=== PATIENT | female | born 1940 | race Caucasian/White ===

== ENCOUNTER 2016-12-25 06:55 | Inpatient (IN) | payer OTHER ==
--- NOTE | ~2016-12-25 | DS ---
Discharge Summary [facility] [address] [place]. [address] NAME: MARINO ELISE : 44 STATUS : DIS IN PAT#: [id number] AGE: 76 ADM/REG DATE : 12/25/16 MR#: [id number] REPORT SERV DATE: 01/01/17 DICTATED BY: WILIAN PORTER DATE: 12/31/16 REPORT STATUS : Draft TRANSCRIBED BY: MODL DATE: 12/31/16 ADMISSION DATE: 12/25/2016 DISCHARGE DATE: 12/31/2016 DISCHARGE DIAGNOSES: 1. Hypoxic respiratory failure. 2. Acute diastolic heart failure and acute pulmonary edema in the setting of mitral stenosis and history of rheumatic fever. 3. Acute chronic obstructive pulmonary disease exacerbation. 4. GI bleed. 5. Anemia of iron deficiency and acute blood loss, most recent H and H 9.0 and 29.4. 6. Hypothyroidism, most recent TSH 3.860. 7. History of coronary artery bypass grafting and coronary artery disease. 8. History of cerebrovascular accident. 9. History of rheumatic fever. DISCHARGE MEDICATIONS: Are as follows: Lipitor 10 mg daily; Lexapro 10 mg daily; doxycycline 100 mg twice a day, prescription written; levothyroxine 75 mcg daily; nicotine patch 14 mg topically daily; torsemide 5 mg daily, prescription written for 30 days only, have instructed her to get a BMP checked at her primary care office in 7-10 days and to further discuss this medicine; lisinopril 10 mg twice a day; Ventolin inhaler puffs every 4 hours p.r.n. and Symbicort 160/4.5 two puffs twice a day. Also, the patient will be discharging home on oxygen 2 L nasal cannula continuous. HISTORY OF PRESENT ILLNESS: A 76-year-old white female, who presented with difficulty breathing and hypoxia, please see the initial H and P of Dr. Spencer Gibson as the patient was admitted to the hospitalist service for further evaluation and treatment. Lab work was ordered and followed. She was initially found to have a gastrointestinal bleed, was started on PPI therapy. Nebulizers were initiated as well. PROCEDURES AND IMAGING DURING THIS ADMISSION: Included: An echocardiogram showing ejection fraction of 60% with mild to moderate diastolic dysfunction, and moderate mitral stenosis. CONSULTANTS DURING THIS ADMISSION: Included: Gastrointestinal, Dr. Spencer Hong. CONTINUATION OF HOSPITAL COURSE: The patient was initially seen by Dr. Spencer Gibson where she was still dyspneic and wheezing, but had made some mild improvement with oxygen and nebulizer therapy. She was seen by GI, who did not feel at this time to pursue endoscopy procedure, but to follow her lab work and perhaps see her as an outpatient. She had some initial hypotension, but this has since resolved and her blood pressures have been stable. I began seeing the patient on 12/28/2016, where I attempted to wean her oxygen down, however was unsuccessful in this. I obtained a procalcitonin level in an effort to begin deescalating her antibiotics. This came back at 0.06, so her IV antibiotics of Zithromax and Rocephin were discontinued, and she was started on doxycycline. The patient continued to improve slowly each day. She did have some slight elevation of white blood cells, related to the steroids, but has remained afebrile. She did have an acute episode of Discharge Summary [address] [place]. [address] NAME: MARINO ELISE : 42 STATUS : DIS IN PAT#: [id number] AGE: 76 ADM/REG DATE : 12/25/16 MR#: [id number] REPORT SERV DATE: 01/01/17 DICTATED BY: WILIAN PORTER DATE: 12/31/16 REPORT STATUS : Draft TRANSCRIBED BY: ANIKET DATE: 12/31/16 pulmonary edema, which resolved with the use of IV diuretics and she has been weaned down to p.o. diuretics and is tolerating a very low-dose Demadex at this time. She was unable to be weaned from her oxygen and her room air sat at rest persisted at 88%, 89% with exercise at room air 81%, so she will be discharging home on oxygen therapy. I have also initiated inhaler therapy with Symbicort at discharge and instructed to follow up with her primary care in 7-10 days. She also needs to recheck TSH in 6 weeks and the patient is to call the office of Dr. Spencer Hong for followup as an outpatient for possible EGD. She was in agreement with all these plans going forward. Questions were answered at bedside with both, the patient and her . Please note, greater than 30 minutes were spent on this discharge for medication teaching, followup planning, and further disposition. [facility] [place]/MODL Wilian Porter NP / [id number] CC: Aury Brandt M.D.
--- NOTE | ~2016-12-25 | HP ---
History And Physical [place] [id number] [place]. [address] NAME: MARINO ELISE : 42 STATUS : ADM IN [facility]#: [id number] AGE: 76 ADM/REG DATE : 12/25/16 MR#: [id number] REPORT SERV DATE: 12/25/16 DICTATED BY: ROSA MARIA GIBSON DATE: 12/25/16 REPORT STATUS : Draft TRANSCRIBED BY: MODL DATE: 12/25/16 DATE OF ADMISSION: 12/25/2016 CHIEF COMPLAINT: This is a 76-year-old white female, who was triaged in the emergency room on 12/25/2016 at 0655 hours complaining of difficulty breathing. In the emergency room, she was found to have a room air sat of 80% which increased to 90% on 2 L. after evaluation in the emergency room, she was thought to have an acute exacerbation of COPD in addition to anemia with Hemoccult-positive stools. She was referred to the Hospitalist Service for admission and is now seen by the undersigned and admitted. The history is obtained from the patient, granddaughter, and review of medical records on [facility]. HISTORY OF PRESENT ILLNESS: She has been ill for the last at least two to three days. On 12/23, she presented to the emergency room at 0556 hours complaining of an upset stomach, lightheaded, and coughing. Admission vital signs; blood pressure 125/45, temperature 98.3, pulse 94, respirations 22, and O2 saturation 94% on 2L. On exam, she had faint wheezing. Her evaluation included a chest x-ray that showed cardiomegaly, prior CABG, and aortic valve procedure with no failure noted. Laboratory studies included a white count of 9.3, hemoglobin of 9.9, and platelets 380,000. PTT 31.6 and PT 14.9. Sodium 137, potassium 3.8, chloride 103, CO2 of 24, BUN 11, creatinine 0.6, glucose 167, calcium 7.9, and magnesium 1.7. BNP 254.2. Troponin less than 0.02. Arterial blood gases on room air, pH 7.43, pCO2 of 33, and PO2 of 60. Her diagnosis was dyspnea and COPD exacerbation. She was discharged from the emergency room with Zithromax, prednisone dose pack, albuterol HFA, and instructions to discontinue tobacco use. Her symptoms transiently improved. However, they became worse today and she came back to the emergency room. She does have a cough with yellow tanned sputum. She continued to be short of breath and has audible wheezing. She has not had fever or chills. She has not had chest pain. She has not had any earache or sore throat, but has noted some nasal drainage. She has had some nausea and diarrhea associated with black stool. She has had some upper abdominal soreness. She has had no dysphagia, odynophagia, or heartburn. She has not had any hematuria but has noted some burning with urination. MEDICAL HISTORY: Her medical history is significant for, 1. Iron deficiency, receiving outpatient iron infusions through [facility] 2. History of symptomatic Schatzki's ring and hiatal hernia requiring dilatation. She has had food bolus impaction at least three times requiring endoscopic treatment in 06/2016, 09/2015, and 08/2014. 3. She has had previous gastrointestinal bleeding. 4. A colonoscopy in 12/2015 demonstrated diverticulosis, angioectasia, polyps, and hemorrhoids. 5. An EGD in 08/2014 showed esophagitis, gastritis, and duodenitis. 6. Tissue aortic valve replacement. 7. CAD, post CABG. 8. History of strokes x2, left occipital and right basal ganglia. History And Physical [address] [place]. [address] NAME: MARINO ELISE : 42 STATUS : ADM IN [facility]#: [id number] AGE: 76 ADM/REG DATE : 12/25/16 MR#: [id number] REPORT SERV DATE: 12/25/16 DICTATED BY: ROSA MARIA GIBSON DATE: 12/25/16 REPORT STATUS : Draft TRANSCRIBED BY: MODQuinn DATE: 12/25/16 9. Hypertension. 10.B12 deficiency, not on regular treatment. 11.Hypothyroid, not on regular treatment. 12.Renal stones. 13.Carotid disease, post left carotid endarterectomy. 14.She has no history of cancer or VTE or diabetes. PAST SURGICAL HISTORY: Tissue aortic valve, CABG, hysterectomy, cholecystectomy, and left carotid endarterectomy. ALLERGIES OR INTOLERANCE: Zofran and sulfa. HOME MEDICATIONS: Albuterol, Zithromax, and steroid dose pack as noted from ED visit. Additional home medications, Lipitor 10 mg daily, Lexapro 10 mg daily, levothyroxine 75 mcg daily, and Prinivil 10 mg twice daily. FAMILY HISTORY: Largely unknown. She does not think there are family members with problems similar to hers. SOCIAL HISTORY: She is . She has a 50-year-old daughter. Continues to smoke. No alcohol use. Lives in [place], [place]. REVIEW OF SYSTEMS: Complete, done with the patient and granddaughter in room 6104, negative except as noted above. PHYSICAL EXAMINATION: VITAL SIGNS: Admission ED vital signs are as noted above. Vital signs on floor arrival: O2 saturation 95% on 4 L, blood pressure 148/79, temperature 97.4, pulse 106, and respiratory rate 28. GENERAL: This is a stated age-appearing acutely ill white female. SKIN: No rash, that is confluent. No petechiae. No ecchymoses. NODES: No palpable axillary, cervical, or inguinal. HEENT: Atraumatic with symmetric facies. Lids, sclerae, and conjunctivae negative. No xanthelasma, scleral icterus, or conjunctival petechiae or injection. Pupils surgical, equal, round, and react to light. Extraocular movements intact. No nystagmus. Hearing intact. External ears negative. Ear canals ceruminous, cannot see TM. Nose, negative. Anterior nares clear. Lips, gums, mucosa, soft palates, posterior pharynx, and tongue negative. NECK: No visible JVD or asymmetry. No palpable mass, goiter, or tenderness. LUNGS: Diffuse wheezing. Normal respiratory effort on O2. HEART: Regular tachycardia with 2/6 to 3/6 aortic systolic murmur. No diastolic murmur, click, rub, or S3 gallop. Pulses 2+ and symmetric radial, carotid, femoral, and dorsalis pedis. ABDOMEN: Obese. Nontender to palpation. Cannot feel liver, spleen, kidneys, or aortic pulsation. EXTREMITIES: Upper and lower extremities, no active synovitis, clubbing. Feet are puffy along with the ankles. History And Physical [address] [place]. [address] NAME: MARINO ELISE : 42 STATUS : ADM IN [facility]#: [id number] AGE: 76 ADM/REG DATE : 12/25/16 MR#: [id number] REPORT SERV DATE: 12/25/16 DICTATED BY: ROSA MARIA GIBSON DATE: 12/25/16 REPORT STATUS : Draft TRANSCRIBED BY: ANIKET DATE: 12/25/16 NEUROLOGIC: Mental status, she is oriented. Cranial nerves II through XII normal. Deep tendon reflexes symmetric triceps, biceps, knee jerk, absent ankle jerks. Sensory intact to touch and temperature. Motor, normal muscle bulk and tone. Moves all extremities equally. PSYCHIATRIC: Anxious, but appropriate. DATA: Blood gases on room air, pH 7.43, pCO2 of 33, and PO2 of 46. Procalcitonin 0.06. Sodium 139, potassium 3.4, chloride 104, CO2 of 25, BUN 17, creatinine 0.75, glucose 178, calcium 7.9, total protein 6.9, albumin 3.3, and globulin 3.6. Total bilirubin 0.4, alkaline phosphatase 83, ALT 35, and AST 33. Troponin is 0.6. C-reactive protein 57.6. BNP is pending. CBC: White count is 12.6, hemoglobin 9.4, hematocrit 30.6, MCV 81.6, and platelets 440,000. Chest x-ray shows pulmonary venous hypertension with perihilar and bibasilar infiltrates which has progressed from 12/23 x-ray. Echocardiogram: Normal left ventricular systolic function with an EF of 60%, mild LVH, moderate diastolic dysfunction, elevated left atrial pressures, normal right ventricular chamber size and systolic function, normal functioning aortic valve prosthesis, moderate mitral stenosis. ASSESSMENT: This is a 76-year-old white female with, 1. Acute hypoxemic respiratory failure. 2. Pulmonary edema. 3. Positive troponin, consider tmg-BU-ssmpalgfs myocardial infarction in the setting of known coronary disease, post coronary artery bypass grafting. 4. Moderate mitral stenosis. Possibly contributing to presentation with history of tissue aortic valve. 5. Suspected acute exacerbation of chronic obstructive pulmonary disease. 6. Possible community-acquired pneumonia. 7. Acute gastrointestinal bleed with history of same. 8. Acute blood loss anemia. 9. Iron deficiency. 10.History of symptomatic Schatzki's ring and hiatal hernia with recurrent food bolus obstruction. 11.Previous documented diverticulosis, angioectasia, polyps, and hemorrhoids on colonoscopy. 12.Previous documented esophagitis, gastritis, and duodenitis on EGD. 13.Previous cerebrovascular accident x2. 14.Hypertension. 15.B12 deficiency. 16.Hypothyroid. 17.Renal stones. 18.Carotid disease post endarterectomy. PLAN: [place] [address] admission. Telemetry. Stat repeat troponin and if trending upward, ask Cardiology to see. Begin Protonix drip and ask GI to see with stat repeat hemoglobin at this time. Begin Bumex and potassium, Solu-Medrol, DuoNeb, Brovana, and budesonide. Begin IV iron when condition stabilizes. Continue home medications of Lipitor, Lexapro, levothyroxine, and Prinivil. Further diagnostic and therapeutic considerations pending History And Physical [address] [place]. [address] NAME: MARINO ELISE : 44 STATUS : ADM IN [facility]#: [id number] AGE: 76 ADM/REG DATE : 12/25/16 MR#: [id number] REPORT SERV DATE: 12/25/16 DICTATED BY: ROSA MARIA GIBSON DATE: 12/25/16 REPORT STATUS : Draft TRANSCRIBED BY: ANIKET DATE: 12/25/16 above. DD/ANIKET Rosa Maria Gibson M.D. / [id number] CC: Aury Davis M.D.
--- NOTE | ~2016-12-25 | CN ---
Consultation Report [facility] [address] [place]. [address] NAME: MARINO MARIN : 42 STATUS : ADM IN PAT#: [id number] AGE: 76 ADM/REG DATE : 12/25/16 MR#: [id number] REPORT SERV DATE: 12/27/16 DICTATED BY: EL HOYOS DATE: 12/27/16 REPORT STATUS : Draft TRANSCRIBED BY: MODL DATE: 12/27/16 GI CONSULTATION. DATE OF CONSULTATION: 12/26/2016 REASON FOR CONSULTATION: Dark stools, anemia. HISTORY OF PRESENT ILLNESS: Ms. Marin is a 76-year-old white female, who has previously been seen by Dr. Spencer Hong, whom I am covering over the weekend, and she has a history of aortic valve replacement, coronary artery disease, status post CABG, stroke, hypertension, and she presents to [facility] with a one-week history of dark stools. She is on iron, but she has been on iron supplementation for the past one to two years and normally has brown stool. This change in stool caliber and color is new over the past one week as stated above. Her previous colonoscopy was performed in 12/[address] Hong, who found diverticulosis and two diminutive polyps, which were found to be tubular adenomas. Also of note, she was found to have arteriovenous malformations which were at that time not bleeding as well as internal hemorrhoids. She denies any abdominal pain. No nausea or vomiting. No coffee-ground or hematemesis. Last dark stool was on the date of admission (yesterday 12/25/2016). She also had an EGD performed in 07/2016 for dysphagia where she had a Schatzki ring, which was dilated with a 48-Tunisian Savary dilator. She also had a hiatal hernia. No AVMs noted on the EGD. Hemoglobin and hematocrit are 9.5 and 30.6, platelets 450. BUN 13, creatinine 0.73, and INR is 1.2. PAST MEDICAL HISTORY: AVR, coronary artery disease, status post CABG, stroke, hypertension, hiatal hernia, Schatzki ring, status post dilation, and she had food bolus removal. PAST SURGICAL HISTORY: CABG, cholecystectomy, hysterectomy, and left carotid endarterectomy. SOCIAL HISTORY: The patient uses tobacco. FAMILY HISTORY: No history of colorectal cancer. MEDICATIONS: Reviewed. ALLERGIES: REVIEWED. PHYSICAL EXAMINATION: VITAL SIGNS: The patient is afebrile. Her vital signs are stable. GENERAL: The patient is awake, alert, and oriented. Well developed, elderly female, in no acute distress. HEENT: Atraumatic, normocephalic. Anicteric. Mucous membranes moist. CARDIAC: 3/6 systolic murmur heard. S1, S2. CHEST: Clear. ABDOMEN: Soft, nontender, and nondistended. Bowel sounds normoactive. Consultation Report [place] [id number] [place]. [address] NAME: MARINO MARIN : 44 STATUS : ADM IN [facility]#: [id number] AGE: 76 ADM/REG DATE : 12/25/16 MR#: [id number] REPORT SERV DATE: 12/27/16 DICTATED BY: LE HOYOS DATE: 12/27/16 REPORT STATUS : Draft TRANSCRIBED BY: MODL DATE: 12/27/16 LABORATORY DATA: Showed WBC 10.2, hemoglobin 9.5, hematocrit 30.6, platelets 450. INR is 1.2. Sodium 140, potassium 3.6, chloride 104, bicarb 31, BUN 13, creatinine 0.73, and glucose 130. IMPRESSION AND PLAN: Dark stools x1 week, which is new, although she is on chronic iron. This is a change from her norm and so we will make n.p.o. for likely EGD tomorrow with Dr. Hong. Continue PPI. Continue serial Hgb to monitor for further bleeding. I discussed the procedure, indications, risks, benefits, and alternatives with Ms. Marin and she is agreeable to proceed. However, again, we will discuss with Dr. Hong regarding this matter. /MODL Le Hoyos MD / [id number] CC: Spencer Gibson M.D. Tayler Antunez M.D.
[~2016-12-25 06:55] MED LIST: ACET500CAP PO; ASAB PO; ATIVAN PO; ATV.5 PO; ATV1 PO; CIP5 PO; CRESTOR PO; CRESTOR10 PO; GLUCPH PO; LEVOTHROID25 MCG PO; LEVOTHYROXIN PO; LEVOTHYROXIN50 MCG PO; LEVOTHYROXIN75 MCG PO; LEXAPRO10 PO; NORV5 PO; PERCOCET; PLAVIX PO; PRILO PO; PRILOSEC40 MG PO; PRIN10 PO; PROTONIX PO; SPIRIVA INH; SYMBICORT 160/41 INH INH; SYMBICORT1 AE1 IN; SYN.05 PO; SYN075 PO; SYNTHROID PO; VITAMIN B-121000 MC1 SL; ZIAC5 PO; [UNRECOGNIZED DRUG - OTHER] PO
[2016-12-25 07:30] LABS: ALLENS TEST Pos; BE (BASE EXCESS) -1.9 MEQ/L (0 +/- 2.5); CARBOXYHEMOGLOBIN 1.7 % (0-3); HCO3 (ACTUAL BICARBONATE) 21.8 MEQ/L (23-27); HEMOBLOGIN CONTENT 9.9 G/DL (12-16); INSTRUMENT SERIAL # 8087; O2 CONTENT 11.3 VOL% (18-24); PCO2 (CO2 TENSION) 33 MMHG (35-45); PO2 (O2 TENSION) 46 MMHG (79-93); SAMPLE Arterial; pH 7.43 (7.37-7.43)
[2016-12-25 08:22] LABS: BASOPHILS 0.2 %; BASOPHILS ABSOLUTE 0.02 10/3/uL (0.0-0.16); EOSINOPHILS 0 %; HEMATOCRIT 30.6 % (36.0-48.0); HEMOGLOBIN 9.4 g/dL (12.0-16.0); IMMATURE GRANULOCYTES 0.4 %; IMMATURE GRANULOCYTES ABSOLUTE 0.05 10/3/uL (0.0-0.11); LYMPHOCYTES 4.4 %; LYMPHOCYTES ABSOLUTE 0.55 10/3/uL (0.67-4.30); MEAN CORPUS HGB CONC 30.7 g/dL (32.0-36.0); MEAN CORPUSCULAR HEMOGLOB 25.1 pg (26.0-34.0); MEAN CORPUSCULAR VOLUME 81.6 fL (80-100); MEAN PLATELET VOLUME 9.3 fL (9.2-13.0); MONOCYTES 9.2 %; MONOCYTES ABSOLUTE 1.15 10/3/uL (0.21-1.20); NEUTROPHILS 85.8 %; NEUTROPHILS ABSOLUTE 10.79 10/3/uL (2.02-8.40); PLATELET COUNT 440 10/3/uL (150-400); RBC DISTRIBUTION WIDTH 17.2 % (12.0-16.0); RED CELL COUNT 3.75 10/6/uL (4.0-5.6); WHITE BLOOD CELLS 12.6 10/3/uL (4.5-10.5)
[2016-12-25 08:23] LABS: ER CBC TAT 0 Hrs 05 Mins; MANUAL DIFF NO %
[2016-12-25 08:36] LABS: A/G RATIO 0.9 (0.7-1.9); ALBUMIN 3.3 G/DL (3.5-5.0); ALKALINE PHOSPHATASE 83 U/L (45-117); BUN (BLOOD UREA NITROGEN) 17 MG/DL (6-23); CALCIUM, SERUM 7.9 MG/DL (8.5-10.4); CHLORIDE, SERUM 104 MMOL/L (96-112); CO2 (CARBON DIOXIDE) 25 MMOL/L (24-34); CREATININE 0.75 MG/DL (0.55-1.02); GFR AFRICAN AMERICAN 91 ML/MIN (>=60); GFR NON AFRICAN AMERICAN 79 ML/MIN (>=60); GLOBULIN 3.6 G/DL (2.5-4.1); GLUCOSE, SERUM 178 MG/DL (60-99); POTASSIUM, SERUM 3.4 MMOL/L (3.5-5.3); SGOT(AST) 33 U/L (5-40); SGPT(ALT) 35 U/L (5-65); SODIUM, SERUM 139 MMOL/L (135-148); TOTAL BILIRUBIN 0.4 MG/DL (0-1.2); TOTAL PROTEIN 6.9 G/DL (6.0-8.5)
[2016-12-25] MEDS ORDERED: LIPITOR10 PO (09:33)
[2016-12-25] MEDS ORDERED: LEXAPRO10 PO (09:33)
[2016-12-25] MEDS ORDERED: PRIN10 PO (09:33)
[2016-12-25] MEDS ORDERED: VENTOLIN HFA INH (09:33)
[2016-12-25] MEDS ORDERED: LEVOTHYROXIN75 MCG PO (09:33)
[2016-12-25] MEDS ORDERED: DELTADOSE PO (09:34)
[2016-12-25] MEDS ORDERED: Z-PAK PO (09:34)
[2016-12-25 14:56] LABS: PROCALCITONIN 0.06 ng/mL (<0.5)
[2016-12-25 15:10] LABS: C-REACTIVE PROTEIN 57.6 MG/L (<8.0)
[2016-12-25 17:44] LABS: BASOPHILS 0.1 %; BASOPHILS ABSOLUTE 0.01 10/3/uL (0.0-0.16); EOSINOPHILS 0 %; HEMATOCRIT 30.5 % (36.0-48.0); HEMOGLOBIN 9.3 g/dL (12.0-16.0); IMMATURE GRANULOCYTES 0.5 %; IMMATURE GRANULOCYTES ABSOLUTE 0.04 10/3/uL (0.0-0.11); LYMPHOCYTES 4.5 %; LYMPHOCYTES ABSOLUTE 0.38 10/3/uL (0.67-4.30); MEAN CORPUS HGB CONC 30.5 g/dL (32.0-36.0); MEAN PLATELET VOLUME 9.5 fL (9.2-13.0); MONOCYTES 4.9 %; MONOCYTES ABSOLUTE 0.42 10/3/uL (0.21-1.20); NEUTROPHILS ABSOLUTE 7.66 10/3/uL (2.02-8.40); PLATELET COUNT 450 10/3/uL (150-400); RED CELL COUNT 3.72 10/6/uL (4.0-5.6); WHITE BLOOD CELLS 8.5 10/3/uL (4.5-10.5)
[2016-12-25 17:47] LABS: MANUAL DIFF NO %
[2016-12-26 08:11] LABS: BASOPHILS 0.2 %; BASOPHILS ABSOLUTE 0.02 10/3/uL (0.0-0.16); EOSINOPHILS 0 %; HEMATOCRIT 30.6 % (36.0-48.0); HEMOGLOBIN 9.5 g/dL (12.0-16.0); IMMATURE GRANULOCYTES 0.4 %; IMMATURE GRANULOCYTES ABSOLUTE 0.04 10/3/uL (0.0-0.11); LYMPHOCYTES 11.2 %; LYMPHOCYTES ABSOLUTE 1.14 10/3/uL (0.67-4.30); MANUAL DIFF NO %; MEAN CORPUSCULAR HEMOGLOB 25.1 pg (26.0-34.0); MEAN CORPUSCULAR VOLUME 80.7 fL (80-100); MEAN PLATELET VOLUME 9.3 fL (9.2-13.0); MONOCYTES 9.1 %; MONOCYTES ABSOLUTE 0.93 10/3/uL (0.21-1.20); NEUTROPHILS 79.1 %; NEUTROPHILS ABSOLUTE 8.08 10/3/uL (2.02-8.40); PLATELET COUNT 450 10/3/uL (150-400); RBC DISTRIBUTION WIDTH 17.1 % (12.0-16.0); RED CELL COUNT 3.79 10/6/uL (4.0-5.6); WHITE BLOOD CELLS 10.2 10/3/uL (4.5-10.5)
[2016-12-26 08:27] LABS: BUN (BLOOD UREA NITROGEN) 13 MG/DL (6-23); CALCIUM, SERUM 7.6 MG/DL (8.5-10.4); CHLORIDE, SERUM 102 MMOL/L (96-112); CO2 (CARBON DIOXIDE) 31 MMOL/L (24-34); CREATININE 0.73 MG/DL (0.55-1.02); GFR AFRICAN AMERICAN 94 ML/MIN (>=60); GFR NON AFRICAN AMERICAN 81 ML/MIN (>=60); GLUCOSE, SERUM 130 MG/DL (60-99); POTASSIUM, SERUM 3.6 MMOL/L (3.5-5.3); SODIUM, SERUM 140 MMOL/L (135-148); TROPONIN I 0.26 NG/ML (<0.05)
[2016-12-26 08:28] LABS: B NATRIURETIC PEPTIDE (BNP) 770.2 PG/ML (< 100.0)
[2016-12-26 10:17] LABS: GLYCOHEMOGLOBIN (HbA1c) 5.8 % (4.7-6.1)
[2016-12-27 05:45] LABS: CALCIUM, SERUM 8.1 MG/DL (8.5-10.4); CHLORIDE, SERUM 100 MMOL/L (96-112); CO2 (CARBON DIOXIDE) 28 MMOL/L (24-34); CREATININE 0.63 MG/DL (0.55-1.02); GFR AFRICAN AMERICAN 102 ML/MIN (>=60); GFR NON AFRICAN AMERICAN 88 ML/MIN (>=60); GLUCOSE, SERUM 131 MG/DL (60-99); POTASSIUM, SERUM 3.8 MMOL/L (3.5-5.3); SODIUM, SERUM 138 MMOL/L (135-148)
[2016-12-27 05:47] LABS: BUN (BLOOD UREA NITROGEN) 17 MG/DL (6-23)
[2016-12-27 05:49] LABS: HEMATOCRIT 31.6 % (36.0-48.0); HEMOGLOBIN 9.4 g/dL (12.0-16.0); MANUAL DIFF YES %; MEAN CORPUS HGB CONC 29.7 g/dL (32.0-36.0); MEAN CORPUSCULAR HEMOGLOB 24.6 pg (26.0-34.0); MEAN CORPUSCULAR VOLUME 82.7 fL (80-100); MEAN PLATELET VOLUME 9.9 fL (9.2-13.0); PLATELET COUNT 517 10/3/uL (150-400); RBC DISTRIBUTION WIDTH 17.1 % (12.0-16.0); RED CELL COUNT 3.82 10/6/uL (4.0-5.6); WHITE BLOOD CELLS 8.2 10/3/uL (4.5-10.5)
[2016-12-27 06:13] LABS: ANISOCYTOSIS 1+ (5-10/OIF) (0-5/OIF); HYPOCHROMIA 1+ (3-10/OIF) (0-2/OIF); LYMPHOCYTES 15 %; LYMPHOCYTES ABSOLUTE (CALC) 1.23 10/3/uL (0.67-4.30); MONOCYTES 9 %; MONOCYTES ABSOLUTE (CALC) 0.74 10/3/uL (0.21-1.20); NEUTROPHILS ABSOLUTE (CALC) 6.23 10/3/uL (2.02-8.40); PLATELET ESTIMATE SLT INC (ADEQUATE); SEGMENTED NEUTROPHIL (0) 76 %; TOTAL NUCLEATED CELLS 100
[2016-12-28 04:10] LABS: BASOPHILS 0.3 %; BASOPHILS ABSOLUTE 0.02 10/3/uL (0.0-0.16); EOSINOPHILS 0 %; HEMOGLOBIN 8.7 g/dL (12.0-16.0); IMMATURE GRANULOCYTES 1.5 %; LYMPHOCYTES 20.1 %; LYMPHOCYTES ABSOLUTE 1.34 10/3/uL (0.67-4.30); MEAN CORPUSCULAR HEMOGLOB 24.8 pg (26.0-34.0); MEAN CORPUSCULAR VOLUME 82.6 fL (80-100); MEAN PLATELET VOLUME 9.4 fL (9.2-13.0); MONOCYTES 13.5 %; NEUTROPHILS 64.6 %; NEUTROPHILS ABSOLUTE 4.31 10/3/uL (2.02-8.40); PLATELET COUNT 478 10/3/uL (150-400); RED CELL COUNT 3.51 10/6/uL (4.0-5.6); WHITE BLOOD CELLS 6.7 10/3/uL (4.5-10.5)
[2016-12-28 04:19] LABS: MANUAL DIFF NO %
[2016-12-28 04:22] LABS: BUN (BLOOD UREA NITROGEN) 16 MG/DL (6-23); CALCIUM, SERUM 8.2 MG/DL (8.5-10.4); CHLORIDE, SERUM 100 MMOL/L (96-112); CO2 (CARBON DIOXIDE) 30 MMOL/L (24-34); CREATININE 0.58 MG/DL (0.55-1.02); GFR AFRICAN AMERICAN 105 ML/MIN (>=60); GFR NON AFRICAN AMERICAN 91 ML/MIN (>=60); GLUCOSE, SERUM 138 MG/DL (60-99); POTASSIUM, SERUM 4.2 MMOL/L (3.5-5.3); SODIUM, SERUM 137 MMOL/L (135-148)
[2016-12-29 05:33] LABS: HEMATOCRIT 28.6 % (36.0-48.0); HEMOGLOBIN 8.7 g/dL (12.0-16.0); MEAN CORPUS HGB CONC 30.4 g/dL (32.0-36.0); MEAN CORPUSCULAR HEMOGLOB 24.7 pg (26.0-34.0); MEAN CORPUSCULAR VOLUME 81.3 fL (80-100); MEAN PLATELET VOLUME 9.5 fL (9.2-13.0); PLATELET COUNT 573 10/3/uL (150-400); RBC DISTRIBUTION WIDTH 17.2 % (12.0-16.0); RED CELL COUNT 3.52 10/6/uL (4.0-5.6)
[2016-12-29 05:36] LABS: MANUAL DIFF YES %; WHITE BLOOD CELLS 12.8 10/3/uL (4.5-10.5)
[2016-12-29 05:56] LABS: BUN (BLOOD UREA NITROGEN) 18 MG/DL (6-23); CALCIUM, SERUM 8.6 MG/DL (8.5-10.4); CHLORIDE, SERUM 96 MMOL/L (96-112); CO2 (CARBON DIOXIDE) 33 MMOL/L (24-34); GFR AFRICAN AMERICAN 99 ML/MIN (>=60); GFR NON AFRICAN AMERICAN 85 ML/MIN (>=60); GLUCOSE, SERUM 126 MG/DL (60-99); POTASSIUM, SERUM 4.2 MMOL/L (3.5-5.3); SODIUM, SERUM 135 MMOL/L (135-148)
[2016-12-29 06:19] LABS: ANISOCYTOSIS 1+ (5-10/OIF) (0-5/OIF); BAND NEUTROPHILS 13 %; HYPOCHROMIA 1+ (3-10/OIF) (0-2/OIF); IMMATURE GRANS ABSOLUTE (CALC) 1.28 10/3/uL (0.0-0.11); LYMPHOCYTES 19 %; LYMPHOCYTES ABSOLUTE (CALC) 2.43 10/3/uL (0.67-4.30); METAMYELOCYTES 5 %; MONOCYTES 11 %; MONOCYTES ABSOLUTE (CALC) 1.41 10/3/uL (0.21-1.20); MYELOCYTES 5 %; NEUTROPHILS ABSOLUTE (CALC) 7.68 10/3/uL (2.02-8.40); PLATELET ESTIMATE SLT INC (ADEQUATE); SEGMENTED NEUTROPHIL (0) 47 %; TOTAL NUCLEATED CELLS 100
[2016-12-30 04:00] LABS: HEMATOCRIT 29.4 % (36.0-48.0); MEAN CORPUS HGB CONC 30.6 g/dL (32.0-36.0); MEAN CORPUSCULAR HEMOGLOB 24.6 pg (26.0-34.0); MEAN CORPUSCULAR VOLUME 80.3 fL (80-100); MEAN PLATELET VOLUME 9.5 fL (9.2-13.0); NUCLEATED RED BLOOD CELLS 2.4 /100WBC (0-0); PLATELET COUNT 583 10/3/uL (150-400); RBC DISTRIBUTION WIDTH 17.3 % (12.0-16.0); RED CELL COUNT 3.66 10/6/uL (4.0-5.6); WHITE BLOOD CELLS 16.5 10/3/uL (4.5-10.5)
[2016-12-30 04:06] LABS: BUN (BLOOD UREA NITROGEN) 20 MG/DL (6-23); CALCIUM, SERUM 8.9 MG/DL (8.5-10.4); CHLORIDE, SERUM 92 MMOL/L (96-112); CO2 (CARBON DIOXIDE) 33 MMOL/L (24-34); CREATININE 0.73 MG/DL (0.55-1.02); GFR AFRICAN AMERICAN 94 ML/MIN (>=60); GFR NON AFRICAN AMERICAN 81 ML/MIN (>=60); GLUCOSE, SERUM 121 MG/DL (60-99); POTASSIUM, SERUM 3.8 MMOL/L (3.5-5.3); SODIUM, SERUM 134 MMOL/L (135-148)
[2016-12-30 04:07] LABS: MANUAL DIFF YES %
[2016-12-30 04:31] LABS: BAND NEUTROPHILS 2 %; IMMATURE GRANS ABSOLUTE (CALC) 0.33 10/3/uL (0.0-0.11); LYMPHOCYTES 15 %; LYMPHOCYTES ABSOLUTE (CALC) 2.48 10/3/uL (0.67-4.30); METAMYELOCYTES 2 %; MONOCYTES 4 %; MONOCYTES ABSOLUTE (CALC) 0.66 10/3/uL (0.21-1.20); NEUTROPHILS ABSOLUTE (CALC) 13.04 10/3/uL (2.02-8.40); SEGMENTED NEUTROPHIL (0) 77 %; TOTAL NUCLEATED CELLS 100
[2016-12-30 04:42] LABS: ANISOCYTOSIS 1+ (5-10/OIF) (0-5/OIF); PLATELET ESTIMATE INC (ADEQUATE)
[2016-12-30 04:43] LABS: POLYCHROMASIA 1+ (2-5/OIF) (0-1/OIF)
[2016-12-31 05:06] LABS: BUN (BLOOD UREA NITROGEN) 17 MG/DL (6-23); CALCIUM, SERUM 8.6 MG/DL (8.5-10.4); CHLORIDE, SERUM 91 MMOL/L (96-112); CO2 (CARBON DIOXIDE) 31 MMOL/L (24-34); GFR AFRICAN AMERICAN 99 ML/MIN (>=60); GFR NON AFRICAN AMERICAN 85 ML/MIN (>=60); GLUCOSE, SERUM 118 MG/DL (60-99); POTASSIUM, SERUM 3.4 MMOL/L (3.5-5.3); SODIUM, SERUM 135 MMOL/L (135-148)
[2016-12-31] MEDS ORDERED: SYMBICORT 160/41 INH INH (14:29)
[2016-12-31] MEDS ORDERED: VIBRATAB100 MG PO (14:31)
[2016-12-31] MEDS ORDERED: DEMADEX5 MG PO (14:32)
[2017-01-27] MEDS ORDERED: PRILOSEC40 MG PO (12:42)
== END 2016-12-31 15:39 | disposition home or self-care (01) | DRG 189 ==
LOC: ER 06:55 → 6NO 11:09
PROVIDERS: Emergency Medicine; Internal Medicine; Nurse Practitioner Family
DX: J96.01 Acute respiratory failure with hypoxia (principal); I47.2 Ventricular tachycardia; I50.31 Acute diastolic (congestive) heart failure; J44.1 Chronic obstructive pulmonary disease with (acute) exacerbation; D62 Acute posthemorrhagic anemia; K92.2 Gastrointestinal hemorrhage, unspecified; K22.2 Esophageal obstruction; I25.10 Atherosclerotic heart disease of native coronary artery without angina pectoris; E03.9 Hypothyroidism, unspecified; E53.8 Deficiency of other specified B group vitamins; K29.70 Gastritis, unspecified, without bleeding; K44.9 Diaphragmatic hernia without obstruction or gangrene; K57.30 Diverticulosis of large intestine without perforation or abscess without bleeding; I05.0 Rheumatic mitral stenosis; I25.2 Old myocardial infarction; I10 Essential (primary) hypertension; F17.210 Nicotine dependence, cigarettes, uncomplicated; D72.829 Elevated white blood cell count, unspecified; T38.0X5A Adverse effect of glucocorticoids and synthetic analogues, initial encounter; Z95.1 Presence of aortocoronary bypass graft; Z95.4 Presence of other heart-valve replacement; Z86.010 Personal history of colon polyps; Z86.73 Personal history of transient ischemic attack (TIA), and cerebral infarction without residual deficits; Z88.2 Allergy status to sulfonamides; Z88.8 Allergy status to other drugs, medicaments and biological substances
CPT/HCPCS: 36415; 36600; 71010; 71020; 80048; 80053; 82805; 82962; 83036; 83735; 83880; 84132; 84145; 84443; 84484; 85025; 85610; 85730; 86140; 86850; 86900; 86901; 87040; 87205; 87449; 93005; 93306; 94640; 96374; 96375; 99285; 99291; A9270-GY; C9113; J0456; J2916; J2930; Q9967

== ENCOUNTER 2017-01-17 17:19 | Emergency (ER) | payer OTHER ==
--- NOTE | ~2017-01-17 | OP ---
Record Of Operation [facility] [address] [place]. [address] NAME: MARINO ELISE : 44 STATUS : [facility] PAT#: [id number] AGE: 76 ADM/REG DATE : 01/17/17 MR#: [id number] REPORT SERV DATE: 01/18/17 DICTATED BY: GREG BYRNES DATE: 01/17/17 REPORT STATUS : Draft TRANSCRIBED BY: MODQuinn DATE: 01/17/17 DATE OF PROCEDURE: PROCEDURE: EGD with removal of food bolus obstruction of the esophagus. INDICATION: Food bolus obstruction of the esophagus. MEDICATIONS: General endotracheal anesthesia. BOTTOM CEMENTER: Greg Byrnes M.D. COMPLICATIONS: None apparent at the end of the procedure. HISTORY: This 76-year-old woman has history of reflux. She is noncompliant with reflux medication. She also has a known Schatzki's ring, which has been dilated in the past. Despite a recent food bolus obstruction, which I removed in June, she never returned for dilation. She has intermittently had some difficulty swallowing and then ate some country ham this morning that lodged. She presented to the emergency room this afternoon and we were called this evening to remove the food bolus. The potential risks were reviewed including bleeding, medication reaction, perforation, and she elected to proceed. FINDINGS: After she was intubated and sedated, the endoscope was advanced into the esophagus and there was a little bit of floating debris in the midesophagus and so we ran into a solid obstructing bolus of food at the GE junction. We grasped a fairly significant portion of this with a Frost Net, removed it, and did this another time before the remainder finally fell through the GE junction. We were then able to clear the esophagus. There was a tight stricture and ring with moderate esophagitis. There was a 5-cm hiatal hernia. Retroflexed view of the GE junction was otherwise normal. IMPRESSION: 1. Gastroesophageal reflux disease with esophagitis and non-compliance with PPI therapy. 2. Schatzki's ring with esophageal stricture not recently dilated despite a food bolus obstruction in June. 3. Hiatal hernia. RECOMMENDATIONS: 1. She was advised to stay on a soft diet. 2. Had instructed her to call Dr. Hong' office to arrange an elective upper endoscopy and dilation in a couple of weeks when the esophagitis heals. 3. She will begin dmjb-ekp-rjpypcy Prilosec at a dose of 40 mg daily before meal. The endoscopic findings and recommendations were reviewed with her and we will discharge her this evening. Record Of [facility] [address] [place]. [address] NAME: MARINO ELISE : 44 STATUS : [facility] PAT#: [id number] AGE: 76 ADM/REG DATE : 01/17/17 MR#: [id number] REPORT SERV DATE: 01/18/17 DICTATED BY: GREG BYRNES DATE: 01/17/17 REPORT STATUS : Draft TRANSCRIBED BY: ANIKET DATE: 01/17/17 /ANIKET Greg Byrnes M.D. / [id number] CC: Aury Mora M.D.
[~2017-01-17 17:19] MED LIST changes: +DELTADOSE PO; +DEMADEX5 MG PO; +LIPITOR10 PO; +VENTOLIN HFA INH; +VIBRATAB100 MG PO; +Z-PAK PO
[2017-01-17 17:52] LABS: BASOPHILS 0.9 %; BASOPHILS ABSOLUTE 0.06 10/3/uL (0.0-0.16); EOSINOPHILS 3.8 %; EOSINOPHILS ABSOLUTE 0.25 10/3/uL (0.0-0.53); HEMOGLOBIN 10.7 g/dL (12.0-16.0); IMMATURE GRANULOCYTES 1.1 %; IMMATURE GRANULOCYTES ABSOLUTE 0.07 10/3/uL (0.0-0.11); LYMPHOCYTES 27.5 %; LYMPHOCYTES ABSOLUTE 1.79 10/3/uL (0.67-4.30); MEAN CORPUS HGB CONC 29.2 g/dL (32.0-36.0); MEAN CORPUSCULAR HEMOGLOB 26.1 pg (26.0-34.0); MEAN PLATELET VOLUME 9.3 fL (9.2-13.0); MONOCYTES 8.3 %; MONOCYTES ABSOLUTE 0.54 10/3/uL (0.21-1.20); NEUTROPHILS 58.4 %; NEUTROPHILS ABSOLUTE 3.79 10/3/uL (2.02-8.40)
[2017-01-17 17:56] LABS: ER CBC TAT 0 Hrs 08 Mins; HEMATOCRIT 36.7 % (36.0-48.0); MANUAL DIFF NO %; MEAN CORPUSCULAR VOLUME 89.5 fL (80-100); PLATELET COUNT 278 10/3/uL (150-400); RBC DISTRIBUTION WIDTH 23.4 % (12.0-16.0); WHITE BLOOD CELLS 6.5 10/3/uL (4.5-10.5)
[2017-01-17 18:05] LABS: BUN (BLOOD UREA NITROGEN) 13 MG/DL (6-23); CALCIUM, SERUM 8.7 MG/DL (8.5-10.4); CHLORIDE, SERUM 107 MMOL/L (96-112); CO2 (CARBON DIOXIDE) 26 MMOL/L (24-34); CREATININE 0.57 MG/DL (0.55-1.02); GFR AFRICAN AMERICAN 106 ML/MIN (>=60); GFR NON AFRICAN AMERICAN 91 ML/MIN (>=60); POTASSIUM, SERUM 4.1 MMOL/L (3.5-5.3)
[2017-01-17 18:06] LABS: GLUCOSE, SERUM 86 MG/DL (60-99); SODIUM, SERUM 143 MMOL/L (135-148)
[2017-01-17 18:28] LABS: PLATELET ESTIMATE ADQ (ADEQUATE)
[2017-01-17 18:31] LABS: POLYCHROMASIA 1+ (2-5/OIF) (0-1/OIF)
[2017-01-27] MEDS ORDERED: PRILOSEC40 MG PO (12:42)
== END 2017-01-17 18:00 | disposition home or self-care (01) ==
LOC: ER 17:19
PROVIDERS: Internal Medicine Gastroenterology; Physician Assistant
PROC: 0DP64UZ Removal of Feeding Device from Stomach, Percutaneous Endoscopic Approach (ICD-10-PCS; principal; 2017-01-17 18:35)
DX: T18.128A Food in esophagus causing other injury, initial encounter (principal); Z88.2 Allergy status to sulfonamides; Z79.899 Other long term (current) drug therapy
CPT/HCPCS: 80048; 85025; 93005; 96374; 96375; 99284; J0330; J1610; J2405; J3010; J3360

== ENCOUNTER 2017-02-08 07:06 | Day surgery (SDC) | payer OTHER ==
--- NOTE | ~2017-02-08 | EGD ---
EGD REPORT [facility] [address] [place] [address] NAME: MARINO MARIN : 44 STATUS : [facility]#: [id number] AGE: 76 ADM/REG DATE : 02/08/17 MR#: [id number] REPORT SERV DATE: 02/08/17 DICTATED BY: ROSA MARIA SANTAMARIA DATE: 02/08/17 REPORT STATUS : Draft TRANSCRIBED BY: [facility] DATE: 02/08/17 Endoscopy Center Patient Name: Marino Marin Date of : 1940 Attending MD: ROSA MARIA SANTAMARIA MD Procedure Date No Time: 02/08/2017 Procedure: Upper GI endoscopy Indications: Dysphagia Referring MD: CARMELLA ROMERO Medicines: as per anesthesia Complications: No immediate complications. Procedure: Pre-Anesthesia Assessment: - ASA Grade Assessment: IV - A patient with severe systemic disease that is a constant threat to life. After obtaining informed consent, the endoscope was passed under direct vision. Throughout the procedure, the patient's blood pressure, pulse, and oxygen saturations were monitored continuously. The GIF [id number] was introduced through the mouth, and advanced to the third part of duodenum. The upper GI endoscopy was accomplished without difficulty. The patient tolerated the procedure. Findings: A moderate Schatzki ring (acquired) was found at the gastroesophageal junction. The scope was withdrawn. Dilation was performed with a Us dilator with no resistance at 48 Fr. A medium-sized hiatus hernia was present. The examined duodenum was normal. Impression: - Moderate Schatzki ring. Dilated. - Hiatus hernia. - Normal examined duodenum. Recommendation: - Continue present medications. Procedure Code(s): --- Professional --- 46364, Esophagogastroduodenoscopy, flexible, transoral; diagnostic, including collection of specimen(s) by brushing or washing, when performed (separate procedure) 03856, Dilation of esophagus, by unguided sound or bougie, single or multiple passes Diagnosis Code(s): --- Professional --- K22.2, Esophageal obstruction EGD REPORT [facility] [address] [place] [address] [place]. [address] NAME: MARINO MARIN : 44 STATUS : [facility]#: [id number] AGE: 76 ADM/REG DATE : 02/08/17 MR#: [id number] REPORT SERV DATE: 02/08/17 DICTATED BY: ROSA MARIA SANTAMARIA DATE: 02/08/17 REPORT STATUS : Draft TRANSCRIBED BY: [employer] DATE: 02/08/17 K44.9, Diaphragmatic hernia without obstruction or gangrene R13.10, Dysphagia, unspecified CPT copyright 2013 [employer]. All rights reserved. The codes documented in this report are preliminary and upon forgeman helper review may be revised to meet current compliance requirements. ROSA MARIA SANTAMARIA MD 02/08/2017 9:10 AM This report has been signed electronically. Number of Addenda: 0 Note Initiated On: 02/08/2017 8:42 AM Scope Withdrawal Time 0 hours 0 minutes 0 seconds [address] [facility] [place] [address]
== END 2017-02-08 23:59 | disposition home or self-care (01) ==
LOC: DMU 07:06
PROVIDERS: Internal Medicine Gastroenterology
PROC: 0D757ZZ Dilation of Esophagus, Via Natural or Artificial Opening (ICD-10-PCS; principal; 2017-02-08 08:00)
PROC: 0DJ08ZZ Inspection of Upper Intestinal Tract, Via Natural or Artificial Opening Endoscopic (ICD-10-PCS; 2017-02-08 08:00)
DX: K22.2 Esophageal obstruction (principal); K44.9 Diaphragmatic hernia without obstruction or gangrene; F17.200 Nicotine dependence, unspecified, uncomplicated; I10 Essential (primary) hypertension; I25.10 Atherosclerotic heart disease of native coronary artery without angina pectoris; D64.9 Anemia, unspecified; E03.9 Hypothyroidism, unspecified; I50.9 Heart failure, unspecified; J44.9 Chronic obstructive pulmonary disease, unspecified; F41.9 Anxiety disorder, unspecified; Z95.1 Presence of aortocoronary bypass graft; Z86.73 Personal history of transient ischemic attack (TIA), and cerebral infarction without residual deficits; Z88.2 Allergy status to sulfonamides; Z88.8 Allergy status to other drugs, medicaments and biological substances; Z90.710 Acquired absence of both cervix and uterus; Z90.49 Acquired absence of other specified parts of digestive tract